=== PATIENT | female | born 1950 | race Caucasian/White ===

== ENCOUNTER 2016-12-09 21:41 | Inpatient (IN) | payer MEDICARE ==
[~2016-12-09] VITALS: Ht 167.6 cm; Wt 42.3 kg
[~2016-12-09 21:41] MED LIST: ALBU18HF INH; BUDE3CAP6 PO; HYDR-3240 PO; OXYC1TAB7 PO; POLY17PO5 PO
[2016-12-09] MEDS ORDERED: TIOT18CA INH (22:10)
[2016-12-09] MEDS ORDERED: METHOCARBAMOL 750 MG in DEXTROSE 5% 100 ML IV ONE (22:21)
[2016-12-09] MEDS ORDERED: HYDROmorphone 1 MG/ML, 1ML ONE (22:26)
[2016-12-09] MEDS ORDERED: HYDROmorphone 1 MG/ML, 1ML IVPush PRN (22:30)
[2016-12-09] MEDS ORDERED: SODIUM CHLORIDE 0.9%, 500ML IVBOLUS ONE (23:00)
[2016-12-09 23:19] LABS: IS PT STATUS REG ER OR PRE ER? YES
[2016-12-09] MEDS ORDERED: ASPIRIN 81 MG TABLET CHEW ONE (23:46)
[2016-12-10] MEDS ORDERED: ACETAMINOPHEN 325 MG TABLET PO PRN (00:30)
[2016-12-10] MEDS ORDERED: TRAZODONE 50MG TABLET PO PRN (00:30)
[2016-12-10] MEDS ORDERED: DOCUSATE 100 MG CAPSULE PO PRN (00:30)
[2016-12-10] MEDS ORDERED: LABETALOL 5MG/ML, 20ML IV PRN (00:30)
[2016-12-10] MEDS ORDERED: BISACODYL 10 MG SUPP PR PRN (00:30)
[2016-12-10] MEDS ORDERED: POLYETHYLENE GLYCOL 17 GM PACKET PO PRN (00:30)
[2016-12-10] MEDS ORDERED: HYDROcodone/APAP 5/325 TABLET PO PRN (01:00)
[2016-12-10 01:15] VITALS: BP 121/80
[2016-12-10 01:27] LABS: ASPARTATE AMINO TRANSFERASE 37 U/L (15-37); BLOOD UREA NITROGEN 21 mg/dL (7-18)
[2016-12-10] MEDS: SODIUM CHLORIDE 0.9% 1,000 ML IV SCH ×3 (01:57→13:19)
[2016-12-10] MEDS: ENOXAPARIN 40 MG/0.4 ML SQ SCH (01:58)
[2016-12-10] MEDS: methylPREDNISolone SOD SUCC 125 MG/2 ML IVPush SCH ×4 (02:00→17:44)
[2016-12-10] MEDS: HYDROcodone/APAP 5/325 TABLET PO PRN ×3 (02:03→22:26)
[2016-12-10] MEDS: ATORVASTATIN 80 MG TABLET PO SCH ×2 (02:03→22:12)
[2016-12-10 03:27] VITALS: BP 115/80
[2016-12-10] MEDS ORDERED: ASPIRIN 325 MG TABLET PO SCH (06:00)
[2016-12-10] MEDS ORDERED: ASPIRIN 81 MG TABLET CHEW PO ONE (06:00)
[2016-12-10 06:29] LABS: IS PT STATUS REG ER OR PRE ER? NO
[2016-12-10 07:15] VITALS: BP 98/66
[2016-12-10] MEDS: ALBUTEROL/IPRATROPIUM 2.5MG/0.5MG, 3 ML NPPB SCH ×3 (07:15→19:07)
[2016-12-10] MEDS ORDERED: ASPIRIN 81 MG TABLET CHEW PO SCH (09:00)
[2016-12-10] MEDS: DOXYCYCLINE 100MG TABLET PO SCH ×2 (10:59→22:12)
[2016-12-10] MEDS: CYCLOBENZAPRINE 10 MG TABLET PO PRN ×3 (11:00→22:26)
[2016-12-10 12:21] LABS: IS PT STATUS REG ER OR PRE ER? NO
[2016-12-10 14:08] VITALS: BP 115/71
[2016-12-10] MEDS ORDERED: OMNIPAQUE 350 MG/ML, 100ML BOTTLE ONE (18:23)
[2016-12-10 18:54] VITALS: BP 117/69
[2016-12-11] MEDS: methylPREDNISolone SOD SUCC 125 MG/2 ML IVPush SCH ×4 (01:18→18:23)
[2016-12-11] MEDS: ENOXAPARIN 40 MG/0.4 ML SQ SCH (01:18)
[2016-12-11 01:40] VITALS: BP 129/82
[2016-12-11] MEDS: HYDROcodone/APAP 5/325 TABLET PO PRN ×3 (03:29→22:29)
[2016-12-11 05:48] LABS: ASPARTATE AMINO TRANSFERASE 35 U/L (15-37); BLOOD UREA NITROGEN 22 mg/dL (7-18)
[2016-12-11] MEDS: ALBUTEROL/IPRATROPIUM 2.5MG/0.5MG, 3 ML NPPB SCH ×3 (06:40→19:02)
[2016-12-11 06:49] LABS: DIFF TOTAL CELLS COUNTED 100 CELL DIFF
[2016-12-11 06:52] LABS: VERIFY COUNTS? YES
[2016-12-11 06:55] LABS: LARGE PLATELETS 1+
[2016-12-11 07:04] VITALS: BP 124/74
[2016-12-11] MEDS: DOXYCYCLINE 100MG TABLET PO SCH ×2 (10:06→22:29)
[2016-12-11] MEDS: CYCLOBENZAPRINE 10 MG TABLET PO PRN ×2 (12:47→22:29)
[2016-12-11 13:20] VITALS: BP 137/83
[2016-12-11] MEDS ORDERED: ALPRazolam 1MG TABLET PO ONE (15:30)
[2016-12-11 20:27] VITALS: BP 123/72
[2016-12-11] MEDS: ATORVASTATIN 80 MG TABLET PO SCH (22:29)
[2016-12-12] MEDS: methylPREDNISolone SOD SUCC 125 MG/2 ML IVPush SCH ×4 (00:54→17:29)
[2016-12-12 01:21] VITALS: BP 115/67
[2016-12-12 06:03] LABS: ASPARTATE AMINO TRANSFERASE 50 U/L (15-37)
[2016-12-12 06:07] LABS: BLOOD UREA NITROGEN 27 mg/dL (7-18)
[2016-12-12 06:50] VITALS: BP 137/87
[2016-12-12] MEDS: ALBUTEROL/IPRATROPIUM 2.5MG/0.5MG, 3 ML NPPB SCH ×3 (07:15→22:02)
[2016-12-12] MEDS: DOXYCYCLINE 100MG TABLET PO SCH ×2 (09:28→20:34)
[2016-12-12] MEDS: CYCLOBENZAPRINE 10 MG TABLET PO PRN ×2 (09:28→15:55)
[2016-12-12] MEDS: HYDROcodone/APAP 5/325 TABLET PO PRN ×3 (09:29→20:34)
[2016-12-12 14:27] VITALS: BP 139/82
[2016-12-12 19:05] VITALS: BP 136/75
[2016-12-12] MEDS: ATORVASTATIN 80 MG TABLET PO SCH (20:34)
[2016-12-13] VITALS (7 sets, daily range): BP systolic 130–154; BP diastolic 73–84
[2016-12-13] MEDS: methylPREDNISolone SOD SUCC 125 MG/2 ML IVPush SCH ×3 (00:20→13:00)
[2016-12-13] MEDS: HYDROcodone/APAP 5/325 TABLET PO PRN ×3 (06:13→20:42)
[2016-12-13 06:29] LABS: ASPARTATE AMINO TRANSFERASE 67 U/L (15-37); BLOOD UREA NITROGEN 26 mg/dL (7-18)
[2016-12-13] MEDS: ALBUTEROL/IPRATROPIUM 2.5MG/0.5MG, 3 ML NPPB SCH ×3 (08:10→20:32)
[2016-12-13] MEDS: DOXYCYCLINE 100MG TABLET PO SCH ×2 (09:58→20:42)
[2016-12-13] MEDS: CYCLOBENZAPRINE 10 MG TABLET PO PRN (15:40)
[2016-12-13] MEDS: ATORVASTATIN 80 MG TABLET PO SCH (20:42)
[2016-12-14 01:06] VITALS: BP 135/80
[2016-12-14] MEDS: CYCLOBENZAPRINE 10 MG TABLET PO PRN ×3 (03:15→19:44)
[2016-12-14] MEDS: HYDROcodone/APAP 5/325 TABLET PO PRN ×3 (03:41→13:28)
[2016-12-14] MEDS: ALBUTEROL/IPRATROPIUM 2.5MG/0.5MG, 3 ML NPPB SCH ×4 (07:45→19:25)
[2016-12-14] MEDS: DOXYCYCLINE 100MG TABLET PO SCH ×2 (07:50→19:44)
[2016-12-14] MEDS: predniSONE 50MG TABLET PO SCH (07:50)
[2016-12-14 07:51] VITALS: BP 169/88
[2016-12-14 13:07] VITALS: BP 135/76
[2016-12-14] MEDS ORDERED: PRED20TA PO (15:48)
[2016-12-14] MEDS ORDERED: DOXY100T PO (15:48)
[2016-12-14] MEDS ORDERED: ATOR80TA75 PO (15:48)
[2016-12-14] MEDS ORDERED: TRAZ50TA18 PO (16:49)
[2016-12-14] MEDS ORDERED: LORA-446 PO (16:49)
[2016-12-14] MEDS ORDERED: MORP20SO PO (16:54)
[2016-12-14] MEDS ORDERED: morphine SULFATE ORAL.CONC 20 MG/ML PO PRN (17:00)
[2016-12-14] MEDS ORDERED: LORazepam 1MG TABLET PO PRN (18:00)
[2016-12-14 19:11] VITALS: BP 138/81
[2016-12-14] MEDS: ATORVASTATIN 80 MG TABLET PO SCH (19:44)
[2016-12-14] MEDS: morphine SULFATE ORAL.CONC 20 MG/ML PO PRN (21:39)
[2016-12-15] MEDS: HYDROcodone/APAP 5/325 TABLET PO PRN (00:41)
[2016-12-15 02:57] VITALS: BP 153/89
[2016-12-15] MEDS: morphine SULFATE ORAL.CONC 20 MG/ML PO PRN (05:33)
[2016-12-15] MEDS: ALBUTEROL/IPRATROPIUM 2.5MG/0.5MG, 3 ML NPPB SCH ×2 (07:09→11:10)
[2016-12-15 07:21] VITALS: BP 167/95
[2016-12-15] MEDS: predniSONE 50MG TABLET PO SCH (07:48)
[2016-12-15] MEDS: DOXYCYCLINE 100MG TABLET PO SCH (07:49)
== END 2016-12-15 13:15 | disposition hospice, home (50) | DRG 280 ==
LOC: ED 23:20 → EDIP 23:36 → 5SO 12-10 00:42 → 3NW 12-13 18:42
PROVIDERS: ADMIT Internal Medicine; ATTEND Internal Medicine
PROC: D0Y07ZZ Contact Radiation of Brain (ICD-10-PCS; principal; 2016-12-09)
PROC: 30233N1 Transfusion of Nonautologous Red Blood Cells into Peripheral Vein, Percutaneous Approach (ICD-10-PCS; 2016-12-13)
DX: I21.4 Non-ST elevation (NSTEMI) myocardial infarction (principal); E43 Unspecified severe protein-calorie malnutrition; J44.1 Chronic obstructive pulmonary disease with (acute) exacerbation; E87.1 Hypo-osmolality and hyponatremia; Z68.1 Body mass index [BMI] 19.9 or less, adult; C34.90 Malignant neoplasm of unspecified part of unspecified bronchus or lung; C79.31 Secondary malignant neoplasm of brain; C79.51 Secondary malignant neoplasm of bone; C79.70 Secondary malignant neoplasm of unspecified adrenal gland; Z66 Do not resuscitate; F12.10 Cannabis abuse, uncomplicated; E88.09 Other disorders of plasma-protein metabolism, not elsewhere classified; D64.9 Anemia, unspecified; T45.1X5A Adverse effect of antineoplastic and immunosuppressive drugs, initial encounter; D69.59 Other secondary thrombocytopenia; D72.829 Elevated white blood cell count, unspecified; E05.90 Thyrotoxicosis, unspecified without thyrotoxic crisis or storm; F41.9 Anxiety disorder, unspecified; K76.9 Liver disease, unspecified; T38.0X5A Adverse effect of glucocorticoids and synthetic analogues, initial encounter; Z87.891 Personal history of nicotine dependence; Z99.81 Dependence on supplemental oxygen; Z88.8 Allergy status to other drugs, medicaments and biological substances; Z79.899 Other long term (current) drug therapy
CPT/HCPCS: 36415; 70491; 70553; 71275; 74177; 77280; 77290; 77295; 77300; 77334; 77387; 77412; 78306; 80053; 82248; 83735; 84439; 84443; 84484; 85025; 85610; 86850; 86900; 86923; 93005; 93306; 94640; 96365; 96375; A9585; J1170; J1650; J7620; Q9967; A9503; C9898; J2800; J2930; J7030; J7040; J7512; P9016